=== PATIENT | female | born 2000 | race Caucasian/White ===

== ENCOUNTER 2020-12-29 09:37 | Emergency (ER) | payer MEDICAID ==
[~2020-12-29] VITALS: Ht 180.3 cm; Wt 97.0 kg
[2020-12-29] MEDS ORDERED: HYDR-4195 RC (10:46)
[2020-12-29 10:52] VITALS: BP 161/101
== END 2020-12-29 10:55 | disposition home or self-care (01) ==
LOC: ER 09:37
DX: K64.4 Residual hemorrhoidal skin tags (principal); J45.909 Unspecified asthma, uncomplicated
CPT/HCPCS: 99281